=== PATIENT | male | born 1975 | race Caucasian/White ===

== ENCOUNTER → 2024-12-13 08:29 | Outpatient (REF) | payer BC, SELFPAY ==
--- NOTE | 2024-12-13 09:26 | CARDSERVLU ---
Echocardiogram with Lumason completed after protocol screening completed. Allergies verified.
Patent IV site: __Left median antecubital 22 G PC___
IV site flushed with 0.9% NaCl pre and post administration.
Diluted bolus method utilized to enhance visualization of ventricular ledbetter.
Total volume given: ___3_ mL
Patient tolerated all procedures well without complications.
Heplock D/C ed at 0923, site clear, no redness, no edema. Pressure held, no bleeding. 2x2 applied and taped. Pt offers no complaints.
== END ==
LOC: RCS 08:29
PROVIDERS: ATTENDING PHYSICIAN Internal Medicine; FAMILY PHYSICIAN Family Medicine
DX: I25.810 Atherosclerosis of coronary artery bypass graft(s) without angina pectoris (principal); I50.32 Chronic diastolic (congestive) heart failure; I10 Essential (primary) hypertension
CPT/HCPCS: 93306; Q9950